=== PATIENT | female | born 1930 | race Caucasian/White ===

== ENCOUNTER 2017-12-02 12:40 | Emergency (ER) | payer MEDICARE, OTHER ==
[~2017-12-02] VITALS: Ht 162.6 cm; Wt 54.0 kg
--- NOTE | 2017-12-02 14:23 | Diagnostic Imaging Report ---
Radiographs of the left wrist - 3 views HISTORY: Pain COMPARISON: None available. FINDINGS: Bones: Slightly comminuted minimally displaced intra-articular distal radius fracture. Osseous alignment is within normal limits. Joints: Scattered degenerative change. No osseous erosion. Soft tissues: Soft tissue swelling IMPRESSION: Slightly comminuted minimally displaced intra-articular distal radius fracture with soft tissue swelling. Signed by: Dr. Raúl Jon M.D. on 12/02/2017 2:19 PM
[2017-12-02 14:29] VITALS: BP 142/70
== END 2017-12-02 14:43 | disposition home or self-care (01) ==
LOC: FSED 12:40
DX: S52.572A Other intraarticular fracture of lower end of left radius, initial encounter for closed fracture (principal); W18.39XA Other fall on same level, initial encounter; Y92.008 Other place in unspecified non-institutional (private) residence as the place of occurrence of the external cause; I10 Essential (primary) hypertension; Z86.73 Personal history of transient ischemic attack (TIA), and cerebral infarction without residual deficits
CPT/HCPCS: 99284